=== PATIENT | female | born 1950 | race Native Hawaiian/Other Pacific Islander ===

== ENCOUNTER 2018-04-28 12:38 | Outpatient (CLI) | payer OTHER | END 2018-04-28 23:43 | disposition home or self-care (01) | LOC: MAMMO 12:38 | DX: Z12.31 Encounter for screening mammogram for malignant neoplasm of breast (principal) ==

== ENCOUNTER 2018-11-13 10:41 | Outpatient (CLI) | payer OTHER ==
[2018-11-13 11:21] LABS: PLATELET COUNT 226 K/uL (152-353)
[2018-11-13 11:23] LABS: POTASSIUM 4.3 mmol/L (3.6-5.2)
== END 2018-11-13 21:44 | disposition home or self-care (01) ==
LOC: LABW 10:41
PROVIDERS: Specialist
DX: Z01.810 Encounter for preprocedural cardiovascular examination (principal); R93.1 Abnormal findings on diagnostic imaging of heart and coronary circulation
CPT/HCPCS: 36415; 80053; 85027

== ENCOUNTER 2020-11-08 13:26 | Outpatient (CLI) | payer OTHER ==
[2020-11-08 13:58] LABS: POTASSIUM 4.2 mmol/L (3.6-5.2)
[2020-11-08 14:50] LABS: PLATELET COUNT 242 K/uL (152-353)
== END 2020-11-08 23:39 | disposition home or self-care (01) ==
LOC: LABW 13:26
PROVIDERS: ATTEND Plastic Surgery
DX: Z01.812 Encounter for preprocedural laboratory examination (principal); Z79.899 Other long term (current) drug therapy
CPT/HCPCS: 36415; 80053; 85027; 87535; G0432

== ENCOUNTER 2022-01-29 09:25 | Outpatient (CLI) | payer OTHER | END 2022-01-29 20:30 | disposition home or self-care (01) | LOC: CT 09:25 | PROVIDERS: ATTEND Nurse Practitioner Family | DX: R22.2 Localized swelling, mass and lump, trunk (principal); Z85.3 Personal history of malignant neoplasm of breast; Z08 Encounter for follow-up examination after completed treatment for malignant neoplasm | CPT/HCPCS: 36415; 82565; 84520; Q9963 ==

== ENCOUNTER 2023-06-03 08:04 | Outpatient (CLI) | payer OTHER ==
[~2023-06-03] VITALS: Ht 167.6 cm; Wt 84.4 kg
[~2023-06-03 08:04] MED LIST: ANAS1TAB PO; ASA LOW DOSE81 MG PO; B-121000 MC4 PO; CLON0.5T36 PO; FLUOXETINE40 MG PO; LIPITOR20 MG PO; LISITAB PO; METO-837 PO; PANTOPRAZOLE SO40 M1 PO; VITAMIN B-121000 MC2 PO; VITAMIN C 500 M1 TAB PO; [UNRECOGNIZED DRUG - OTHER] PO
[2023-06-03] MEDS ORDERED: REGADENOSON 0.4 MG/5 ML IV ONE (09:43)
== END 2023-06-03 19:19 | disposition home or self-care (01) ==
LOC: US 08:04
PROVIDERS: ATTEND Internal Medicine
DX: Z85.3 Personal history of malignant neoplasm of breast (principal); R07.89 Other chest pain; E11.9 Type 2 diabetes mellitus without complications; Z13.6 Encounter for screening for cardiovascular disorders; Z84.89 Family history of other specified conditions
CPT/HCPCS: A9500; J2785